=== PATIENT | female | born 1990 | race Hispanic/Latino ===

== ENCOUNTER 2017-05-05 11:30 | Inpatient (IN) | payer BC, MEDICAID ==
[2017-05-05] MEDS ORDERED: PITOCin/NS 20 UNIT/1000ML DRIP 20 UNITS/1,000 ML BAG IV SCH (12:00)
[2017-05-05] MEDS ORDERED: NORMOSOL-R PH 7.4 1,000 ML IV SCH (12:00)
--- NOTE | 2017-05-05 12:10 | History and Physical Report ---
History of Present Illness Date of examination: 05/02/17 Date of admission: 05/06/2017 Chief complaint: here for c/s History of present illness: Pt presents for repeat C/s. All risks, benefits and alternatives were d/w pt and questions were addressed and answered. Consents signed and given to pt to present to the hospital when she comes for surgery. Menstrual History Regularity: irregular Menses every: 28 days Duration: 4 LMP: 08/05/2016 LMP reliability: definite LMP character: normal test type: urine test Date: 09/12/2016 BC at conception: none Planned ? yes EDC Calculations LMP: 05/12/2017 Past History : 4 Term Births: 2 Premature Births: 0 Living Children: 2 Para: 2 Mult. Births: 0 Prev : 0 Prev. attempt? 0 Aborta: 0 Elect. Ab: 0 Spont. Ab: 1 Ectopics: 0 # 1 Delivery date: 06/2006 Weeks Gestation: 38 Delivery type: Anesthesia type: epidural Delivery location: [place] Sex: Female weight: 5-13 Name: jonathon Comments: chose primary section # 2 Delivery date: 04/03/2011 Weeks Gestation: 39 Delivery type: Anesthesia type: epidural Delivery location: [facility] Infant Sex: male weight: 4.81 Name: Rosalino Comments: none # 3 Delivery date: 10/25/2015 Delivery type: SAB Comments: D&C Past Medical History: Reviewed history from 09/19/2015 and no changes required: Negative Past Medical History Past Surgical History: Reviewed history from 09/19/2015 and no changes required: (2006) (2011) D&C: (10/25/2015) Risk Factors: Smoked Tobacco Use: Never smoker Drug use: no Alcohol use: no Exercise: no Previous Tobacco Use: Signed On - 09/19/2015 Smoked Tobacco Use: Current every day smoker Cigarettes: Yes -- 1 pack(s) per day, Year started: 2009 Counseled to quit/cut down: yes Drug use: no Previous Alcohol Use: Signed On - 09/19/2015 Alcohol use: yes Drinks per day: social Seatbelt use: preg-commercial counsel % Dietary Counseling: pn yes PAP Smear History: Date of Last PAP Smear: 09/19/2015 Family History Summary: Other family member - Has No Family History of Uterine Cancer - Entered On: 2016 Other family member - Has No Family History of Stomach Cancer - Entered On: 2016 Other family member - Has No Family History of Small Bowel Cancer - Entered On: 09/12/2016 Other family member - Has No Family History of Pancreatic Cancer - Entered On: Other family member - Has No Family History of Kidney/Urinary Tract Cancer - Entered On: 09/12/2016 Other family member - Has No Family History of DVT/PE on OCP - Entered On: 2016 Other family member - Has No Family History of Breast Cancer - Entered On: 2016 Other family member - Has No Family History of Brain Cancer - Entered On: 2016 Other family member - Has No Family History of Biliary Tract Cancer - Entered On : 09/12/2016 Social History: Reviewed history from 09/19/2015 and no changes required: Assisted living facilty Patient is Smoking History: Patient has never smoked. Past Medical History Surgery (Non-obstetrics gynecology md): (2006) (2011) D&C: (10/25/2015) Abnormal PAP: negative BRITTNEY Exposure: negative Infertility: negative Uterine Anomaly: negative Uterine Surgery (not C/S): negative Other Gynecologic Problems: negative Social Hx: Assisted living facilty Patient is Smoking History: Patient has never smoked. Infection History Hx of STD: none Rash, Viral, or Febrile illness since last LMP? no Varicella/Chicken Pox Status: Unknown PPD Result (mm): negative 04/2016 Genetic History Congenital Heart Defect: Mom: no Dad: no Pastora Disease: Mom: no Dad: no Thalassemia Mom: no Dad: no Neural Tube Defect Mom: no Dad: no Down's Syndrome Mom: no Dad: no Tony-Sachs Mom: no Dad: no Sickle Cell Disease/Trait Mom: no Dad: no Hemophilia Mom: no Dad: no Muscular Dystrophy Mom: no Dad: no Cystic Fibrosis Mom: no Dad: no Custer Chorea Mom: no Dad: no Mental Retardation Mom: no Dad: no Fragile X Mom: no Dad: no Other Genetic/Chromosomal Disorder Mom: no Dad: no Child w/other defect Mom: no Dad: no Enviromental Exposures Enviromental Exposures Reviewed Xray Exposure: no Medication, drug, or alcohol use since LMP: no Chemical/Other Exposure: no Exposure to Cat Liter: no Hx of Parvovirus (Fifth Disease): no Occupational Exposure to Children: other Comments: Assisted living facility FALSECurrent Allergies (reviewed today): No known allergies Past History Past Medical History: no pertinent history Past Surgical History: section (x2) 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 PAP smear Family/Genetic History: other (see hpi) Social history: no significant social history, - Obstetrical History Expected Date of Delivery: 05/12/17 Actual Gestation: 39 Week(s) 0 Day(s) : 4 Para: 2 Hx # Term Pregnancies: 2 Spontaneous Abortions: 1 Number of Living Children: 2 Medications and Allergies Allergies Allergy/AdvReac Type Severity Reaction Status Date / Time No Known Allergies Allergy Verified 10/23/15 11:57 Home Medications Medication Instructions Recorded Confirmed Last Taken Type Ibuprofen [Motrin 800 MG tab] 800 mg PO Q6HR PRN #30 tablet 10/25/15 Unknown Rx oxyCODONE /ACETAMINOPHEN [Percocet 1 tab PO Q6HR #30 tablet 10/25/15 Unknown Rx 5/325] Active Meds: Active Medications Citric Acid/Sodium Citrate (Bicitra) 30 ml PO ONCE ONE Stop: 05/06/17 06:01 Famotidine (Pepcid) 20 mg IV ONCE ONE Stop: 05/06/17 06:01 Cefazolin Sodium (Ancef/Sterile Water 2 Gm/20 Ml) 2 gm in 20 mls @ 80 mls/hr IV PREOP NR; Protocol Parenteral Electrolytes (Normosol-R Ph 7.4) 1,000 mls @ 2,250 mls/hr IV PREOP COLLIN Stop: 05/06/17 12:27 Oxytocin/Sodium Chloride (Pitocin/Ns 20 Unit/1000ml Drip) 20 units in 1,000 mls @ 0 mls/hr IV TITR COLLIN Metoclopramide HCl (Reglan) 10 mg IV ONCE ONE Stop: 05/06/17 06:01 Review of Systems All systems: negative - Physical Exam Cardiovascular: Normal S1, Normal S2 Lungs: Positive: Normal air movement Abdomen: Positive: normal appearance, soft. Negative: distention, tenderness, guarding Genitourinary (Female): Positive: normal external genitalia, normal perenium Vulva: both: normal Anus/Rectum: Positive: normal perianal skin Extremities: Positive: normal. Negative: tenderness, edema - Obstetrical FHR: auscultation normal Cervical Dilatation: 0 Cervical Effacement Percentage: 40 station: -3 Uterine Contraction Pattern: Absent Results All other labs normal. Assessment and Plan - Patient Problems (1) 39 weeks gestation of Status: Acute (2) Previous delivery affecting , antepartum Status: Acute Plan to address problem: -admit for repeat c/s -consents signed and placed on the chart.
[2017-05-06] MEDS ORDERED: PEPCID IV ONE ×2 (06:00→10:49)
[2017-05-06] MEDS ORDERED: BICITRA PO ONE (06:00)
[2017-05-06] MEDS ORDERED: ANCEF/STERILE WATER 2 GM/20 ML 2 GM/20 ML SYRINGE IV NR (06:00)
[2017-05-06] MEDS ORDERED: REGLAN IV ONE (06:00)
[2017-05-06] MEDS ORDERED: NORMOSOL-R PH 7.4 2,000 ML IV ONE (10:10)
[2017-05-06] MEDS ORDERED: BICITRA ONE (10:49)
[2017-05-06] MEDS ORDERED: REGLAN ONE (10:49)
[2017-05-06 10:58] LABS: Basophils # (Auto) 0.1 K/mm3 (0.0-0.1); Basophils % (Auto) 0.4 % (0.0-1.8); Eosinophils # (Auto) 0.1 K/mm3 (0.0-0.4); Eosinophils % (Auto) 0.6 % (0.0-4.3); Hematocrit 37.1 % (30.3-42.9); Hemoglobin 12.2 gm/dl (10.1-14.3); Lymphocytes # (Auto) 1.4 K/mm3 (1.2-5.4); Lymphocytes % (Auto) 10.2 % (13.4-35.0); Mean Corpuscular HGB Conc 33 % (30-34); Mean Corpuscular Hemoglobin 30 pg (28-32); Mean Corpuscular Volume 90 fl (79-97); Monocytes # (Auto) 0.7 K/mm3 (0.0-0.8); Monocytes % (Auto) 5.5 % (0.0-7.3); Platelet Count 287 K/mm3 (140-440); Red Cell Distribution Width 12.8 % (13.2-15.2)
[2017-05-06] MEDS ORDERED: ZOFRAN IV PRN (11:38)
[2017-05-06] MEDS ORDERED: NARCAN 0.4 MG/1 ML IV PRN ×2 (11:38→13:54)
[2017-05-06] MEDS ORDERED: DILAUDID IV PRN (11:38)
[2017-05-06] MEDS ORDERED: BENADRYL IV PRN (11:38)
[2017-05-06] MEDS ORDERED: PHENERGAN PO PRN (11:38)
[2017-05-06] MEDS ORDERED: PHENERGAN PR PRN (11:38)
--- NOTE | 2017-05-06 11:38 | Anesthesia Consultation ---
Anesthesia Consult and Med Hx Date of service: 05/06/17 - Airway Anesthetic Teeth Evaluation: Good ROM Head & Neck: Adequate Mental/Hyoid Distance: Adequate Mallampati Class: Class II Intubation Access Assessment: Probably Good - Pre-Operative Health Status ASA Pre-Surgery Classification: ASA2 Proposed Anesthetic Plan: Epidural, Spinal - Pulmonary Hx Smoking: Yes (former) - Central Nervous System Hx Psychiatric Problems: No - Other Systems Hx Alcohol Use: Yes (occas) Hx Cancer: No
--- NOTE | 2017-05-06 11:38 | Anesthesia Day of Surgery ---
Anesthesia Day of Surgery - Day of Surgery Patient Examined: Yes Patient H&P Reviewed: Yes Patient is NPO: Yes
[2017-05-06] MEDS ORDERED: SODIUM CHLORIDE FLUSH SYRINGE 10 ML IV NR ×2 (12:00→14:00)
[2017-05-06] MEDS ORDERED: NACL 0.9% IR ONE (12:17)
[2017-05-06] MEDS ORDERED: WATER FOR IRRIG STERILE IR ONE (12:17)
[2017-05-06] MEDS ORDERED: METHERGINE IM ONE (12:47)
[2017-05-06] MEDS ORDERED: XYLOCAINE MPF 2% ONE ×4 (12:47)
[2017-05-06] MEDS ORDERED: NEO SYNEPHRINE/NS Syringe(OR USE) IV ONE ×3 (12:47→13:07)
[2017-05-06] MEDS ORDERED: ASTRAMORPH PF 10MG/10ML ONE (12:54)
[2017-05-06] MEDS ORDERED: NACL 0.9% 1000 ML 1,000 ML ONE (13:14)
[2017-05-06] MEDS ORDERED: ZOFRAN ONE (13:33)
[2017-05-06] MEDS ORDERED: LANSINOH TP PRN (13:54)
[2017-05-06] MEDS ORDERED: NORCO 5/325 PO PRN (13:54)
[2017-05-06] MEDS ORDERED: TUCKS PAD TP PRN (13:54)
[2017-05-06] MEDS ORDERED: ANCEF/NS 1 GM/50 ML 1 GM/50 ML BAG IV SCH (14:00)
[2017-05-06] MEDS ORDERED: PITOCin/NS 20 UNIT/1000ML DRIP 20 UNITS/1,000 ML BAG IV SCH (14:00)
--- NOTE | 2017-05-06 14:04 | Operative Report ---
Operative Report Operative Report: Date of procedure: 05/06/2017 Pre-operative diagnosis: 39 weeks gestation Previous section 2 Post-operative diagnosis: Same plus dense adhesions of the uterus to the anterior abdominal wall Procedure name(s): Repeat low transverse section via Pfannenstiel skin incision Surgeon: Dr. Rosen Strand Buncher Fine Wire: NIMO Anesthesia: Spinal epidural EBL: 1 L Urine output: 450 mL of clear urine out at the end of the procedure Fluids: 1800 mL Findings: Liveborn female infant vertex presentation Apgars of 8 and 9 at one and 5 minutes weight 7 lbs. 13 oz. Indications: Patient presents for repeat section. All risk benefits and alternatives were discussed with the patient. Consents were signed and placed on the chart. Procedure: Patient was taking to the operating room. Patient was then prepped and draped in sterile fashion after anesthesia was found to be adequate. A low transverse skin incision was made with the scalpel through previous incisional scar and carried down to the underlying layer of fascia with the Bovie. The fascia was then incised in the midline and this incision was extended bilaterally with the Bovie. The superior aspect of the fascia was grasped with Bryon clamps tented upward and dissected off of the anterior rectus muscles with the scalpel. In similar fashion the inferior aspect of the fascia was grasped with Bryon clamps tented upward and dissected off of the anterior rectus muscles.Entry into the peritoneum was difficult as there was dense adhesions of the uterus to the anterior abdominal wall. Entry into the peritoneum was difficult as there was dense adhesions of the uterus to the anterior abdominal wall. The rectus muscles were then sharply divided in the midline. The peritoneum was identified and entered into sharply. The bladder flap was not created due to dense adhesions of the uterus in the lower uterine segment. A lower transverse uterine incision was made with the scalpel and extended bilaterally with the dissection. Artificial rupture of membranes was performed yielding clear amniotic fluid. The infant's head was then delivered atraumatically. The anterior shoulder and rest of delivered without difficulty. The umbilical cord was clamped x2. The cord was cut. The was then placed in sterile bassinet. Cord blood was not collected. The placenta was manually extracted in its entirety. The uterus was exteriorized and cleared of all clots and debris. The uterine incision was closed using 0 Vicryl in a running locking fashion. Several wfxyzy-in-degby sutures of 0 Vicryl were used to secure excellent hemostasis along the uterine incision. Tisseel was also placed along the uterine incision. The posterior cul-de-sac was copiously irrigated. The uterus was returned to the abdomen. The gutters were also irrigated. The anterior rectus muscles were reapproximated using 3-0 Vicryl. The anterior rectus fascia was reapproximated using 0 Vicryl in a running fashion. The subcuticular fat was reapproximated using 2-0 Vicryl in a running fashion. The skin was reapproximated with 4-0 Monocryl in a subcuticular stitch. The patient tolerated the procedure well. Sponge lap and needle counts were all correct x3. Patient was taken to the recovery room awake and in stable condition.
[2017-05-06] MEDS ORDERED: D5LR 1,000 ML IV ONE (15:59)
[2017-05-06] MEDS: TORADOL IV PRN ×2 (16:00→22:55)
[2017-05-06] MEDS ORDERED: NUBAIN IV ONE (16:15)
[2017-05-06] MEDS: ceFAZolin 1 GM in NACL 0.9% 20 ML IV SCH (21:15)
[2017-05-07 01:52] LABS: Hematocrit 28.9 % (30.3-42.9); Hemoglobin 9.7 gm/dl (10.1-14.3)
[2017-05-07] MEDS: ceFAZolin 1 GM in NACL 0.9% 20 ML IV SCH (05:45)
[2017-05-07] MEDS: TORADOL IV PRN (05:45)
[2017-05-07] MEDS ORDERED: BOOSTRIX IM ONE (06:00)
--- NOTE | 2017-05-07 08:15 | Progress Note ---
Assessment and Plan patient doing well, c/o itching this morning but reports pain is well managed. Lochia scant, Fundus firm, VSSAF, H&H 9.7/28.9. Continue postop pathway. - Patient Problems (1) delivery delivered Current Visit: Yes Status: Acute (2) Anemia due to blood loss, acute Current Visit: Yes Status: Acute Subjective - Subjective Date of service: 05/07/17 Principal diagnosis: postop day #1 s/p repeat c/s Patient reports: appetite normal, voiding normally, pain well controlled, flatus , ambulating normally, no dizzy ambulation, no nauseated : doing well, bottle feeding Objective - Vital Signs Latest vital signs: Vital Signs Temp Pulse Resp BP Pulse Ox 05/07/17 04:50 98.4 F 72 18 109/54 96 05/06/17 23:50 97.8 F 81 18 98/67 96 05/06/17 20:30 97.9 F 75 18 97/63 97 05/06/17 16:00 18 05/06/17 15:00 97.7 F 87 20 109/57 100 05/06/17 12:05 98.4 F 05/06/17 11:01 98.3 F 18 Intake and Output 05/06/17 05/07/17 05/07/17 23:59 07:59 15:59 Intake Total 360 120 Output Total 450 300 Balance -90 -180 Intake: Oral 360 120 Output: Urine 450 300 Indwelling Catheter 450 300 Other: Total, Intake Amount 120 120 Total, Output Amount 450 300 - Exam Breasts: Present: normal, Cardiovascular: Present: Regular rate Lungs: Present: Clear to auscultation, Normal air movement Abdomen: Present: normal appearance, soft Vulva: both: normal Uterus: Present: normal, firm, fundal height at umbilicus Extremities: Present: normal Incision: Present: normal, dry, dressed - Labs Labs: Abnormal lab results 05/06/17 05/07/17 Range/Units 10:25 01:45 WBC 13.6 H (4.5-11.0) K/mm3 Hgb 9.7 L (10.1-14.3) gm/dl Hct 28.9 L D (30.3-42.9) % RDW 12.8 L (13.2-15.2) % Lymph % (Auto) 10.2 L (13.4-35.0) % Seg Neutrophils % 83.3 H (40.0-70.0) % Seg Neutrophils # 11.3 H (1.8-7.7) K/mm3
[2017-05-07] MEDS: MOTRIN PO PRN ×2 (11:35→18:05)
[2017-05-07] MEDS ORDERED: Fluarix Quad 2017-2018(36 MOS+ IM ONE (12:00)
[2017-05-07] MEDS: NORCO 5/325 PO PRN ×2 (16:23→22:20)
[2017-05-08] MEDS: NORCO 5/325 PO PRN ×2 (04:50→09:08)
--- NOTE | 2017-05-08 06:26 | Discharge Summary ---
Providers - Providers Date of Admission: 05/06/17 09:39 Date of discharge: 05/08/17 (pt requests to go home) Attending physician: SULEMAN CINTRON Primary care physician: SULEMAN CINTRON Hospitalization Reason for admission: section Delivery: Procedure: repeat low transverse Episiotomy: none Laceration: none Incision: normal, dry, intact Other procedures: none complications: none Discharge diagnosis: IUP at term delivered [place] baby: female Hospital course: uncomplicated repeat section Pt OOB for AM care VSS FF below umb Lochia scant Incision D&I Stable H&H Asymptomatic anemia Doing well s/p c/s P: d/c today with instructions RTO 1 week for postop care Condition at discharge: Good Disposition: DC-01 TO HOME OR SELFCARE - Discharge Diagnoses (1) delivery delivered Status: Acute Comment: RTO 1 week postop care Plan - Discharge Medications Prescriptions: Ibuprofen 800 mg PO Q6HR #30 tablet oxyCODONE /ACETAMINOPHEN [Percocet 5/325] 1 tab PO Q4HR #30 tab oxyCODONE /ACETAMINOPHEN [Percocet 5/325] 1 tab PO Q4HR #30 tab - Provider Discharge Summary Activity: routine, no sex for 6 weeks, no heavy lifting 4 weeks, no strenuous exercise Diet: routine Instructions: routine Additional instructions: [] Smoking cessation referral if applicable(refer to patient education folder for contact #) [] Refer to [facility] Booklet Call your doctor immediately for: * Fever > 100.5 * Heavy vaginal bleeding ( >1 pad per hour) * Severe persistent headache * Shortness of breath * Reddened, hot, painful area to leg or breast * Drainage or odor from incision. * Keep incision clean and dry at all times and follow doctor's instructions regarding bathing/showering - Follow up plan Follow up: SULEMAN CINTRON MD [Primary Care Provider] - 05/13/17 (Congratulations! Please call [phone] to schedule your postoperative visit in 1 week. Take medication as instructed. Call with concerns.)
[2017-05-08] MEDS: MOTRIN PO PRN (09:08)
[2017-05-08 12:30] VITALS: BP 95/52
== END 2017-05-08 11:50 | disposition home or self-care (01) | DRG 765 ==
LOC: APU 05-06 09:39 → OB 05-06 14:56
PROVIDERS: ADMIT Obstetrics & Gynecology; ATTEND Obstetrics & Gynecology
PROC: 10D00Z1 Extraction of Products of Conception, Low, Open Approach (ICD-10-PCS; principal; 2017-05-06)
PROC: 0UN90ZZ Release Uterus, Open Approach (ICD-10-PCS; 2017-05-06)
PROC: 3E0234Z Introduction of Serum, Toxoid and Vaccine into Muscle, Percutaneous Approach (ICD-10-PCS; 2017-05-07)
DX: O34.211 Maternal care for low transverse scar from previous cesarean delivery (principal); D62 Acute posthemorrhagic anemia; O99.334 Smoking (tobacco) complicating childbirth; F17.200 Nicotine dependence, unspecified, uncomplicated; O99.314 Alcohol use complicating childbirth; O99.03 Anemia complicating the puerperium; O99.63 Diseases of the digestive system complicating the puerperium; K66.0 Peritoneal adhesions (postprocedural) (postinfection); Z3A.39 39 weeks gestation of pregnancy; Z37.0 Single live birth; Z72.89 Other problems related to lifestyle; Z71.6 Tobacco abuse counseling; Z23 Encounter for immunization
CPT/HCPCS: 36415; 85014; 85018; 85025; 86850; 86900; 86901; 90471; 90686; C9250; G0008; J0690; J1170; J1885; J2210; J2274; J2300; J2370; J2405; J2590; J2765; J7030; J7121

== ENCOUNTER 2017-05-09 21:08 | Emergency (ER) | payer BC, MEDICAID ==
[2017-05-09] MEDS ORDERED: ZOFRAN ODT PO ONE (22:11)
[2017-05-09] MEDS ORDERED: DILAUDID IV ONE ×2 (22:13→23:17)
--- NOTE | 2017-05-09 22:15 | Emergency Department Report ---
ED Headache HPI - General Chief Complaint: Headache Stated Complaint: HEADACHE Time Seen by Provider: 05/09/17 22:03 Source: patient, family Exam Limitations: no limitations - History of Present Illness Initial Comments: She is a 26-year-old female that presents emergency room with complaints of headache and neck pain 3 hours. Patient states that she had a on and had an epidural for the . Patient states she did not have a headache mainly after but has developed a headache approximately 3 hours ago. Patient denies fever and chills. Patient complains of neck stiffness. Patient also complains of occipital headache. Patient states pain is a 10 out of 10. Patient states the pain is better with rest and worse with movement. Patient states she took her pain medications and ibuprofen and it is not helping the headache or neck pain. Timing/Duration: 1-3 hours Quality: severe, sharp, stabbing, throbbing Head Injury Location: occipital Recent Head Trauma: no recent headache/trauma Modifying Factors: improves with: cold therapy, exposure to light, immobilization, medication, movement, rest Associated Symptoms: stiff neck. denies: confusion, fatigue, facial pain, fever /chills, flushing, loss of consciousness, nausea/vomiting, nasal congestion, nasal drainage, numbness in legs/feet, rash, seizures, sinus infection, vision changes, weakness Allergies/Adverse Reactions: Allergies No Known Allergies Allergy (Verified 10/23/15 11:57) Home Medications: Ambulatory Orders Ibuprofen [Motrin 800 MG tab] 800 mg PO Q6HR PRN #30 tablet 10/25/15 oxyCODONE /ACETAMINOPHEN [Percocet 5/325] 1 tab PO Q6HR #30 tablet 10/25/15 Ibuprofen 800 mg PO Q6HR #30 tablet 05/06/17 oxyCODONE /ACETAMINOPHEN [Percocet 5/325] 1 tab PO Q4HR #30 tab 05/06/17 oxyCODONE /ACETAMINOPHEN [Percocet 5/325] 1 tab PO Q4HR #30 tab 05/06/17 Docusate Sodium [Colace] 100 mg PO BID PRN #60 capsule 05/08/17 Ferrous Sulfate [Feosol 325 MG tab] 325 mg PO BID #60 tablet 05/08/17 ED Review of Systems ROS: Stated complaint: HEADACHE Other details as noted in HPI Comment: All other systems reviewed and negative Constitutional: denies: chills, fever Eyes: denies: eye pain, eye discharge, vision change ENT: denies: ear pain, throat pain Respiratory: denies: cough, shortness of breath, wheezing Cardiovascular: denies: chest pain, palpitations Endocrine: no symptoms reported Gastrointestinal: denies: abdominal pain, nausea, diarrhea Genitourinary: denies: urgency, dysuria, discharge Musculoskeletal: back pain. denies: joint swelling, arthralgia Skin: denies: rash, lesions Neurological: headache, vertigo. denies: weakness, paresthesias Psychiatric: denies: anxiety, depression Hematological/Lymphatic: denies: easy bleeding, easy bruising ED Past Medical Hx - Past Medical History Previous Medical History?: No - Surgical History Past Surgical History?: Yes Additional Surgical History: c sectX3 - Family History Family history: hypertension - Social History Smoking Status: Never Smoker Substance Use Type: None - Medications Home Medications: Home Medications Medication Instructions Recorded Confirmed Last Taken Type Ibuprofen [Motrin 800 MG tab] 800 mg PO Q6HR PRN #30 tablet 10/25/15 05/07/17 Unknown Rx oxyCODONE /ACETAMINOPHEN [Percocet 1 tab PO Q6HR #30 tablet 10/25/15 05/07/17 Unknown Rx 5/325] Ibuprofen 800 mg PO Q6HR #30 tablet 05/06/17 Unknown Rx oxyCODONE /ACETAMINOPHEN [Percocet 1 tab PO Q4HR #30 tab 05/06/17 Unknown Rx 5/325] oxyCODONE /ACETAMINOPHEN [Percocet 1 tab PO Q4HR #30 tab 05/06/17 Unknown Rx 5/325] Docusate Sodium [Colace] 100 mg PO BID PRN #60 capsule 05/08/17 Unknown Rx Ferrous Sulfate [Feosol 325 MG tab] 325 mg PO BID #60 tablet 05/08/17 Unknown Rx ED Physical Exam - General Limitations: No Limitations General appearance: alert, in no apparent distress - Head Head exam: Present: atraumatic, normocephalic - Eye Eye exam: Present: normal appearance, PERRL, EOMI Pupils: Present: normal accommodation - ENT ENT exam: Present: normal exam, mucous membranes moist - Neck Neck exam: Present: tenderness, meningismus. Absent: full ROM, lymphadenopathy , thyromegaly - Respiratory Respiratory exam: Present: normal lung sounds bilaterally. Absent: respiratory distress - Cardiovascular Cardiovascular Exam: Present: regular rate, normal rhythm. Absent: systolic murmur, diastolic murmur, rubs, gallop - GI/Abdominal GI/Abdominal exam: Present: soft, normal bowel sounds - Extremities Exam Extremities exam: Present: normal inspection - Back Exam Back exam: Present: normal inspection. Absent: tenderness, CVA tenderness (R), CVA tenderness (L), muscle spasm, paraspinal tenderness, rash noted - Neurological Exam Neurological exam: Present: alert, oriented X3 - Psychiatric Psychiatric exam: Present: normal affect, normal mood - Skin Skin exam: Present: warm, dry, intact, normal color. Absent: rash ED Course Vital Signs 05/09/17 05/09/17 05/09/17 21:09 21:10 21:28 Temperature 98.2 F Pulse Rate 107 H 107 H Respiratory 18 Rate Blood Pressure 115/79 115/79 106/65 O2 Sat by Pulse 97 98 Oximetry 05/09/17 05/09/17 05/09/17 21:30 21:46 22:00 Temperature Pulse Rate Respiratory Rate Blood Pressure 102/66 102/66 97/51 O2 Sat by Pulse 98 97 98 Oximetry 05/09/17 05/09/17 05/09/17 22:16 22:36 22:46 Temperature Pulse Rate Respiratory Rate Blood Pressure 106/65 102/66 102/66 O2 Sat by Pulse 97 97 96 Oximetry 05/09/17 05/09/17 05/09/17 23:00 23:12 23:16 Temperature Pulse Rate Respiratory Rate Blood Pressure 104/65 97/51 97/51 O2 Sat by Pulse 98 99 98 Oximetry 05/09/17 05/09/17 05/10/17 23:30 23:45 00:00 Temperature Pulse Rate Respiratory Rate Blood Pressure 108/66 108/66 102/72 O2 Sat by Pulse 94 97 100 Oximetry 05/10/17 05/10/17 05/10/17 00:16 00:36 00:46 Temperature Pulse Rate Respiratory Rate Blood Pressure 108/66 108/66 117/83 O2 Sat by Pulse 98 99 96 Oximetry 05/10/17 05/10/17 05/10/17 01:00 01:16 01:30 Temperature Pulse Rate Respiratory Rate Blood Pressure 113/57 117/83 105/67 O2 Sat by Pulse 95 97 95 Oximetry 05/10/17 05/10/17 05/10/17 01:46 02:00 02:16 Temperature Pulse Rate Respiratory Rate Blood Pressure 113/57 110/57 110/57 O2 Sat by Pulse 94 94 95 Oximetry 05/10/17 05/10/17 05/10/17 02:30 02:46 03:00 Temperature Pulse Rate Respiratory Rate Blood Pressure 103/60 103/60 103/60 O2 Sat by Pulse 96 96 Oximetry - Reevaluation(s) Reevaluation #1: Dr Rosen consulted and made aware of pt in ER. Anesthesia consulted for blood patch. Dr. Michael in ER to place blood patch. 05/09/17 0001 Reevaluation #2: Blood patch was placed and patient had significant relief and reduction pain at 00 35. So patient needs to lay flat for 2 hours and then can be discharged. Discussed case again with [employer]. [employer] agrees the patient is stable and ready for discharge. Dr. Michael also agrees the patient is stable for discharge after laying flat for 2 hours. Patient has 800 mg ibuprofen at home. Patient also has Percocet at home. 05/10/17 01:47 Reevaluation #3: Discussed all results with the patient and plan of care with patient. Patient agrees with plan of care. Patient stable for discharge. 05/10/17 01:48 Reevaluation #4: Patient set up in bed. No headache or pain. Will give patient a Toradol shot as per [employer] recommendations. And we will discharge patient home. Patient stable for discharge. Patient's discharge instructions given to patient. Patient also continue by mouth here sulfate for anemia. 05/10/17 02:57 ED Medical Decision Making - Lab Data Result diagrams: 05/09/17 22:58 05/09/17 22:58 - Radiology Data Radiology results: report reviewed No acute findings on head CT - Medical Decision Making Patient is a 26-year-old female that presents to the emergency room with a spinal headache secondary to epidural after her . Patient is stable for discharge. Patient had a blood patch placed in the ER by anesthesia. Patient has ibuprofen and milligrams called in by her [employer] and has a prescription for Percocet given by her [employer]. - Differential Diagnosis spinal headache. Neck pain. Critical care attestation.: If time is entered above; I have spent that time in minutes in the direct care of this critically ill patient, excluding procedure time. ED Disposition Clinical Impression: Spinal headache, Neck pain, Anemia, Anemia due to blood loss, acute, delivery delivered Disposition: TO HOME OR SELFCARE Is pt being admited?: No Does the pt Need Aspirin: No Condition: Stable Instructions: Lumbar Puncture (ED), Acute Headache (ED) Additional Instructions: Patient take all meds and prescriptions as directed and prescribed. Patient to follow up with [employer] in 2-5 days. Patient to return to ER condition worsens. Patient to take ibuprofen and Tylenol when necessary for pain. Patient increase water. Patient to rest.. Referrals: AMADO BHAKTA MD [Primary Care Provider] - 3-5 Days Time of Disposition: 02:57
[2017-05-09 23:17] LABS: Basophils % (Auto) 0.4 % (0.0-1.8); Eosinophils # (Auto) 0.2 K/mm3 (0.0-0.4); Eosinophils % (Auto) 2.3 % (0.0-4.3); Hematocrit 25.6 % (30.3-42.9); Hemoglobin 8.5 gm/dl (10.1-14.3); Lymphocytes # (Auto) 1.3 K/mm3 (1.2-5.4); Mean Corpuscular HGB Conc 33 % (30-34); Mean Corpuscular Hemoglobin 30 pg (28-32); Mean Corpuscular Volume 91 fl (79-97); Monocytes # (Auto) 0.8 K/mm3 (0.0-0.8); Monocytes % (Auto) 7.9 % (0.0-7.3); Platelet Count 309 K/mm3 (140-440); Red Blood Count 2.82 M/mm3 (3.65-5.03)
[2017-05-09 23:35] LABS: Alanine Aminotransferase 44 units/L (7-56); Albumin 2.9 g/dL (3.9-5); BUN/Creatinine Ratio 15; Blood Urea Nitrogen 6 mg/dL (7-17); Calcium 7.9 mg/dL (8.4-10.2); Hemolysis Index 0
[2017-05-10 00:05] LABS: Erythrocyte Sedimentation Rate 67 mm/Hr (0-20)
--- NOTE | 2017-05-10 00:50 | Progress Note ---
Subjective Date of service: 05/10/17 Principal diagnosis: PDPH Interval history: 26 yo female s/p labour epidural 3 days c/o postural neck pain and headache. Patient stated her headache started 3 days ago and intensified today to include her neck. We were asked by the ED to place an epidural blood patch. Patient was placed in the sitting position while blood was sterily obtained from her right AC by her nurse, after chlorohexidine prep. Sterile prep, with betadine, and drape. MARLA to NS at L3-4. Blood patch was placed until she reported an ease in her symptoms. A total of 10ml of blood was placed. She was placed supine. VSS through out and patient tolerated procedure well. Objective - Constitutional Vitals: Vital Signs - 12hr 05/09/17 05/09/17 05/09/17 21:09 21:10 21:28 Temperature 98.2 F Pulse Rate 107 H 107 H Respiratory 18 Rate Blood Pressure 115/79 115/79 106/65 O2 Sat by Pulse 97 98 Oximetry 05/09/17 05/09/17 05/09/17 21:30 21:46 22:00 Temperature Pulse Rate Respiratory Rate Blood Pressure 102/66 102/66 97/51 O2 Sat by Pulse 98 97 98 Oximetry 05/09/17 05/09/17 05/09/17 22:16 22:36 22:46 Temperature Pulse Rate Respiratory Rate Blood Pressure 106/65 102/66 102/66 O2 Sat by Pulse 97 97 96 Oximetry 05/09/17 23:00 Temperature Pulse Rate Respiratory Rate Blood Pressure 104/65 O2 Sat by Pulse 98 Oximetry - Labs CBC & Chem 7: 05/09/17 22:58 05/09/17 22:58 Labs: Abnormal lab results 05/09/17 05/09/17 Range/Units 22:58 22:58 RBC 2.82 L (3.65-5.03) M/mm3 Hgb 8.5 L (10.1-14.3) gm/dl Hct 25.6 L (30.3-42.9) % RDW 13.0 L (13.2-15.2) % Lymph % (Auto) 13.0 L (13.4-35.0) % [place] % (Auto) 7.9 H (0.0-7.3) % Seg Neutrophils % 76.4 H (40.0-70.0) % BUN 6 L (7-17) mg/dL Creatinine 0.4 L (0.7-1.2) mg/dL Calcium 7.9 L (8.4-10.2) mg/dL Total Protein 5.2 L (6.3-8.2) g/dL Albumin 2.9 L (3.9-5) g/dL
--- NOTE | 2017-05-10 02:25 | Cat Scan Report ---
FINAL REPORT EXAM: CT HEAD/BRAIN WO CON HISTORY: Headache TECHNIQUE: Routine axial imaging was obtained of the brain without IV contrast. FINDINGS: There is no evidence of acute stroke or hemorrhage. The ventricular system is appropriate in size and is symmetric. The basal cisterns appear normal. The visualized sinuses are clear. The mastoid air cells are well pneumatized. The calvarium appears intact. IMPRESSION: No acute intracranial process.
[2017-05-10] MEDS ORDERED: TORADOL ONE (02:56)
[2017-05-10] MEDS ORDERED: TORADOL IV ONE (02:56)
[2017-05-10 03:11] VITALS: BP 103/60
== END 2017-05-10 03:11 | disposition home or self-care (01) ==
LOC: ED 21:08
DX: O90.81 Anemia of the puerperium (principal); D62 Acute posthemorrhagic anemia; O90.89 Other complications of the puerperium, not elsewhere classified; R51 Headache; M54.2 Cervicalgia
CPT/HCPCS: 36415; 70450; 80053; 85025; 85652; 96374; 96375; 96376; 99284; J1170; J1885; J2930; Q0162